=== PATIENT | male | born 1965 | race Caucasian/White ===

== ENCOUNTER 2019-06-22 09:06 | Day surgery (SDC) | payer OTHER, SELFPAY ==
[2019-06-22] VITALS (7 sets, daily range): BP systolic 107–119; BP diastolic 68–76; PULSE 50–66; RESP 12–16; TEMP 36.4–37.1; O2SAT 94–97; BMI 28.5
[2019-06-22] MEDS: SODIUM CHLORIDE 0.9% 1,000 ML 200 ML IV (09:30)
--- NOTE | 2019-06-22 09:45 | PM.HP.1 ---
History of Present Illness Date Patient Seen: 06/22/19 Time Patient Seen: 09:46 Chief complaint: Surviellence colonoscopy Narrative: Mr. Blanco is a 53-year-old male with a history of rectal cancer 2006 status post resection and chemo radiation treatment. He is here today for his screening colonoscopy. His last colonoscopy was 5 years ago and was reportedly negative. He has had diarrhea recently. Otherwise no systemic symptoms. Patient History Medical History Depression (Acute) History of migraine (Acute) Hyperlipidemia (Acute) Hypertension (Acute) Impaired vision (Acute) Rectal cancer (Acute ~2005) Weight loss, unintentional (Acute) Social History household members: spouse Family & Social History Social History: household members spouse Meds Home Medications Medication Instructions Recorded Confirmed Type clonazepam 1 mg PO BEDTIME PRN 06/22/19 06/22/19 History hydrochlorothiazide 25 mg PO DAILY 06/22/19 06/22/19 History losartan 50 mg PO DAILY 06/22/19 06/22/19 History ondansetron 4 mg PO Q6H PRN 06/22/19 06/22/19 History potassium chloride 10 meq PO DAILY 06/22/19 06/22/19 History sertraline 50 mg PO DAILY 06/22/19 06/22/19 History simvastatin 20 mg PO DAILY 06/22/19 06/22/19 History sumatriptan succinate 50 mg PO Q2-4H PRN 06/22/19 06/22/19 History topiramate 25 mg PO BEDTIME 06/22/19 06/22/19 History Allergies Allergy/AdvReac Type Severity Reaction Status Date / Time LISINOPRIL AdvReac Unknown dry cough Uncoded 02/26/18 12:00 Review of Systems Review of Systems General-no weight loss, fever or chills Head and Neck-no change in voice, no neck swelling Pulmonary-No cough, no shortness of breath at rest, no wheezing Cardiac-No syncope, caludiacation, palpitations or lower extremity edema Gastrointestinal-No nausea or vomiting, no abdominal distention, or jaundice Genitourinary-No hematuria or dysuria Hematology-No hypercoagulability, no abnormal bleeding or bruising Neurological-No seizures, new weakness or dizziness Endocrine-No diabetes, no thyroid or adrenal disorders Psychiatric-No anxiety, depression or substance abuse disorder Exam Vital Signs (past 8 hours): - 06/22/19 09:33 Temperature 97.5 F L Pulse Rate 63 Respiratory Rate 16 Blood Pressure 118/74 Pulse Oximetry 95 Oxygen Delivery Method Room Air Narrative Exam Narrative: General-Adult male no acute distress, well nourished HEENT-Moist mucous membranes, no scleral icteris Neck-Supple with full range of motion, no lymphadenopathy Chest- No labored respirations, clear to auscultation bilaterally Cardiac-Regular rate and rhythm Abdomen-Soft, nontender, non distended Extremities-No edema, warm well perfused Neurological-Alert and oriented x 3. No focal deficits Skin-Normal temperature and turgor, no rashes or ulcers Assessment & Plan (1) History of rectal cancer: Current visit: Yes Status: Acute Assessment & Plan narrative: 53-year-old male with a history of rectal cancer in 2005 status post resection here for screening colonoscopy. Last colonoscopy was 5 years ago
--- NOTE | 2019-06-22 09:50 | PM.PREOP ---
Pre-operative Note Interval Note History & Physical reviewed/Exam performed by Physician: Yes Changes to H&P: No ASA Class (for procedural sedation): II
--- NOTE | 2019-06-22 09:52 | PM.OP.ENDO ---
Operative Date/Time/Diagnoses Date of procedure: 06/22/19 Time of procedure: 09:52 Pre-op diagnosis: History of rectal cancer Post-op diagnosis: same Procedure & Clinicians Study performed: Colonoscopy Same procedure as scheduled: Yes Indications: History of rectal cancer 2006 sp resection. Surgeon: Yung Cunningham Procedure Notes SCOAP/Timeout: performed Procedure in detail: Time-out performed to ensure the correct patient procedure necessary equipment within the operating room. Digital rectal exam was performed which demonstrated a normal prostateand no rectal masses. The colonoscopy was inserted into the anus. A end-to-end anastomosis was observed consistent with his history of a low anterior resection for rectal cancer. The scope was advanced into the descending colon transverse colon ascenending colon and reached the cecum. The ileocecal valve was identified. The scope was then carefully withdrawn. There were no masses or polyps. The coloanal anastomosis appeared normal. Patient tolerated the procedure well. Scope withdrawal time: 11min Sedation minutes: 23 Findings: other findings (colon anal anastamosis sp LAR) Specimen(s): none sent Impression: SP Low anterior resection normal colonoscopy Recommendations: Colonscopy in 3 years Follow up: as needed Disposition: PACU
[2019-06-22] MEDS: fentaNYL 250 MCG/5 ML INJ IV (10:00)
[2019-06-22] MEDS: MIDAZOLAM 5 MG/5 ML VIAL IV (10:01)
--- NOTE | 2019-06-22 10:34 | SUR.PHASEI ---
Report to Carm[facility]
== END 2019-06-22 11:12 | disposition home or self-care (01) ==
PROVIDERS: Visit Provider Surgery
PROC: 0DJD8ZZ Inspection of Lower Intestinal Tract, Via Natural or Artificial Opening Endoscopic (ICD-10-PCS; CPT 45378; principal; 2019-06-22 10:45)
DX: Z85.048 Personal history of other malignant neoplasm of rectum, rectosigmoid junction, and anus (principal); I10 Essential (primary) hypertension
CPT/HCPCS: 45378; 99152; J2250; J3010

== ENCOUNTER → 2022-08-06 09:27 | Outpatient (CLI) | payer OTHER, SELFPAY ==
[2022-08-06 13:14] LABS: COVID19 -Nasal RAPID Negative (Negative)
== END ==
PROVIDERS: PCP Physician Assistant Medical; Visit Provider Surgery
DX: Z01.812 Encounter for preprocedural laboratory examination (principal); Z20.822 Contact with and (suspected) exposure to COVID-19
CPT/HCPCS: 87635; C9803

== ENCOUNTER 2022-08-07 10:15 | Day surgery (SDC) | payer OTHER, SELFPAY ==
--- NOTE | 2022-08-07 | PATH_ITS ---
[facility] Accession Number: [id number] . 01 Material submitted: . PART A: anastomosis - ANASTOMOSIS BIOPSY PART B: rectum - RECTAL POLYP . 01 Clinical history: . COLONOSCOPY ENCOUNTER FOR SCREENING FOR MALIGNANT NEOPLASM . 01 Diagnosis: A. Anastomosis, Biopsy: Hyperplastic colonic mucosa. Negative for active inflammation, granulomas, dysplasia, and malignancy. . B. Rectum, Polyp, Biopsy: Hyperplastic polyp. MRV 08/09/2022 0931 Local . 01 Electronically signed: . Ruma Doherty MD, Pathologist NPI- [id number] . 01 Gross description: . Part A: ANASTOMOSIS BIOPSY: Received in formalin is 1 fragment(s) of leal, soft tissue measuring 0.5 x 0.3 x 0.1 cm submitted entirely in 1 cassette(s) Part B: RECTAL POLYP: Received in formalin is 1 fragment(s) of leal, soft tissue measuring 0.3 x 0.3 x 0.2 cm submitted entirely in 1 cassette(s) /CPE 08/08/2022 0910 Local . 01 Pathologist provided ICD-10: K62.1 . 01 CPT . 986664, [id number] Performed at: 01 [facility] [address] [place] [address] [address], [place], [place] [id number] MD Hakeem Valenzuela MD Phone: [phone]
[2022-08-07] MEDS: LACTATED RINGERS 1,000 ML 200 ML IV (10:35)
[2022-08-07 10:36] VITALS: BP 163/79; PULSE 63; RESP 14; TEMP 36.2; O2SAT 98; BMI 34.0
--- NOTE | 2022-08-07 11:19 | PM.HP.1 ---
History of Present Illness History of Present Illness Date Patient Seen: 08/07/22 Time Patient Seen: 11:19 Chief complaint: Colonoscopy Narrative: 56-year-old man history rectal cancer status post LAR here for screening colonoscopy. A he has recently lost some weight and had some diarrhea which he is attributing to a change in his diet and starting metformin. No abdominal pain or blood per rectum Patient History Medical History Depression History of migraine Hyperlipidemia Hypertension Impaired vision Rectal cancer (~2005) Weight loss, unintentional Family & Social History Social History: household members spouse Tobacco & Substance use: Smoking Status Never smoker alcohol intake current alcohol intake frequency holiday/special occasion Substance Use Type does not use Meds Home Medications and Allergies Home Medications Medication Instructions Recorded Confirmed Type clonazepam 1 mg tablet 1 mg PO BEDTIME PRN Anxiety 06/22/19 08/07/22 History hydrochlorothiazide 25 mg tablet 25 mg PO DAILY 06/22/19 08/07/22 History losartan 50 mg tablet 50 mg PO DAILY 06/22/19 08/07/22 History ondansetron 4 mg disintegrating 4 mg PO Q6H PRN Nausea 06/22/19 08/07/22 History tablet potassium chloride 10 mEq 10 meq PO DAILY 06/22/19 08/07/22 History tablet,extended release sertraline 50 mg tablet 50 mg PO DAILY 06/22/19 08/07/22 History simvastatin 20 mg tablet 20 mg PO DAILY 06/22/19 08/07/22 History sumatriptan succinate 50 mg tablet 50 mg PO Q2-4H PRN Headache 06/22/19 08/07/22 History topiramate 25 mg tablet 25 mg PO BEDTIME 06/22/19 08/07/22 History Allergies Allergy/AdvReac Type Severity Reaction Status Date / Time LISINOPRIL AdvReac Unknown dry cough Uncoded 08/07/22 10:10 Exam Vital Signs (past 8 hours): - 08/07/22 10:36 Temperature 97.1 F L Pulse Rate 63 Respiratory Rate 14 Blood Pressure 163/79 H Pulse Oximetry 98 Oxygen Delivery Method Room Air Oxygen Delivery Method Room Air Narrative Exam Narrative: General adult male alert oriented no acute distress Chest nonlabored respiration Abdomen soft nontender nondistended Assessment & Plan Assessment & Plan narrative: The patient requires colorectal screening and colonoscopy is recommended. Technical details were discussed. Risks, benefits, alternatives explained. Risks including but not limited to myocardial infarction, aspiration, bleeding, pain, missed lesion, incomplete examination, need for further radiographic studies, colonic perforation, and need for major abdominal surgery were discussed. All questions were answered to their satisfaction, and they are in agreement with this plan. Time Spent With Patient Critical Care time: I spent a total of [] minutes of critical care time on this patient's care today; this time is exclusive of procedural time.
[2022-08-07] MEDS: MIDAZOLAM 5 MG/5 ML VIAL 4 MG IV (11:29)
[2022-08-07] MEDS: fentaNYL 100 MCG/2 ML INJ IV (11:29)
--- NOTE | 2022-08-07 11:48 | PM.OP.COLON ---
Operative Date/Time/Diagnoses Date of procedure: 08/07/22 Time of procedure: 11:48 Pre-op diagnosis: Personal history of rectal cancer Post-op diagnosis: same Procedure & Clinicians Study performed: Colonoscopy and polypectomy Same procedure as scheduled: Yes Indications: Personal history of rectal cancer status post LAR Surgeon: Yung Cunningham Procedure Notes Procedure in detail: Medications: Conscious sedation using 4mg IV midazolam and 100mcg IV of fentanyl The history and physical was performed/updated and the patient is ASA class is 2. The procedure was discussed in detail with the patient. Potential risks complications including infection, bleeding, missed diagnosis, perforation, need for surgery, and were explained. Their questions were answered and informed consent was obtained. Patient was brought to the procedure room and placed standard monitoring equipment. The patient's vital signs were monitored continuously throughout the entire procedure. Prior to starting time-out was performed. The patient was placed in the left lateral recumbent position. Procedural sedation was administered. Examination began with a thorough inspection of the perianal area there was no evidence of fissures, fistulae, external hemorrhoids or cutaneous malignancy. The colonoscopy scope was then placed into the anal canal and was advanced to the cecum, which was identified by the ileocecal valve, the appendiceal orifice and the confluence of the taenia. The scope was then slowly withdrawn examining colon thoroughly in all directions, irrigating it of any residual stool. FINDINGS 1. Rectum-5 mm polyp removed with biopsy forceps 2. Distal colonic end and anastomosis mild friability. Biopsy performed The patient tolerated the procedure well. They will be discharged once criteria are met. The prep was of good/excellent quality. The withdrawl time was 12 minutes. The sedation time was 18 minutes. Specimen(s): other (Rectal polyp, colonic anastomosis) Complications: none Impression: Colonic polyp Post-procedure Recommendations: Will call with biopsy results Disposition: same day surgery
[2022-08-07 11:54] VITALS: BP 138/83; PULSE 50; RESP 12; TEMP 36.2; O2SAT 97
[2022-08-07 11:59] VITALS: BP 132/82; PULSE 49; RESP 11; O2SAT 96
[2022-08-07 12:04] VITALS: BP 143/86; PULSE 47; RESP 16; O2SAT 98
[2022-08-07 12:09] VITALS: BP 151/93; PULSE 58; RESP 12; O2SAT 94
[2022-08-07 12:11] VITALS: BP 136/87; PULSE 46; RESP 13; TEMP 37.1; O2SAT 98
--- NOTE | 2022-08-07 12:16 | SUR.PHASEII ---
Report received. Patient denied pain, abdomen soft. Declined PO intake. Call light within reach. Criselda was updated with patient status.
== END 2022-08-07 12:36 | disposition home or self-care (01) ==
PROVIDERS: PCP Physician Assistant; Referring Provider Surgery; Visit Provider Surgery
PROC: 0DJD8ZZ Inspection of Lower Intestinal Tract, Via Natural or Artificial Opening Endoscopic (ICD-10-PCS; CPT 45378; principal; 2022-08-07 11:30)
DX: Z12.11 Encounter for screening for malignant neoplasm of colon (principal); Z85.048 Personal history of other malignant neoplasm of rectum, rectosigmoid junction, and anus; K62.1 Rectal polyp
CPT/HCPCS: 45380; 82962; 99152; J2250; J3010

== ENCOUNTER 2025-11-08 09:16 | Day surgery (SDC) | payer OTHER, SELFPAY ==
[2025-11-03 09:09] VITALS: BMI 29.4
[2025-11-08] MEDS: LACTATED RINGERS 1,000 ML 42 ML IV (10:28)
[2025-11-08 10:29] VITALS: BP 178/80; PULSE 54; RESP 16; TEMP 36.2; O2SAT 100
--- NOTE | 2025-11-08 10:36 | PM.HP.IH.1 ---
History of Present Illness History of Present Illness Date Patient Seen: 11/08/25 Time Patient Seen: 10:36 Chief complaint: Colonoscopy Narrative: Tremayne is a 60-year-old man who has a history of rectal cancer from 2005. His last colonoscopy was in 2021 and he had a hyperplastic polyp removed. [facility] Medical History (Updated 11/03/25 @ 09:07 by Lisa Crowe RN) GERD (gastroesophageal reflux disease) Diabetes Weight loss, unintentional Depression History of migraine Impaired vision Rectal cancer (~2005) Hyperlipidemia Hypertension Social History household members: spouse Smoking Status: Never smoker alcohol intake: current Meds Home Medications and Allergies Home Medications ?Medication ?Instructions ?Recorded ?Confirmed ?Type clonazepam 1 mg tablet 1 mg PO BEDTIME PRN Anxiety 06/22/19 11/08/25 History hydrochlorothiazide 25 mg tablet 25 mg PO DAILY 06/22/19 11/08/25 History losartan 50 mg tablet 50 mg PO DAILY 06/22/19 11/08/25 History ondansetron 4 mg disintegrating 4 mg PO Q6H PRN Nausea 06/22/19 11/08/25 History tablet potassium chloride 10 mEq 10 meq PO DAILY 06/22/19 11/08/25 History tablet,extended release sertraline 50 mg tablet 50 mg PO DAILY 06/22/19 11/08/25 History simvastatin 20 mg tablet 20 mg PO DAILY 06/22/19 08/07/22 History topiramate 25 mg tablet 25 mg PO BEDTIME 06/22/19 08/07/22 History Allergies Allergy/AdvReac Type Severity Reaction Status Date / Time lisinopril AdvReac Mild Cough Verified 08/07/22 11:46 Exam Vital Signs (past 8 hours): - 11/08/25 10:29 Temperature 97.2 F L Pulse Rate 54 L Respiratory Rate 16 Blood Pressure 178/80 H Pulse Oximetry 100 Oxygen Delivery Method Room Air Oxygen Delivery Method Room Air Const General: No acute distress Assessment & Plan Assessment and plan (1) History of rectal cancer: Status: Acute Plan Colonoscopy for history of rectal cancer Time-Based Coding :: [TOTAL MINUTES] spent with patient and on the chart (including review of chart, obtaining history, exam, reviewing outside data, placing orders, documenting exam and treatment plan, and counseling patient) on [DATE]. [employer] Environmental Program Manager Document charge(s): No
[2025-11-08 11:08] VITALS: BP 118/72; PULSE 118; RESP 14; TEMP 36.2; O2SAT 97
--- NOTE | 2025-11-08 11:08 | PM.OP.COLON ---
Operative Date/Time/Diagnoses Date of procedure: 11/08/25 Time of procedure: 11:08 Pre-op diagnosis: History of rectal cancer Post-op diagnosis: same Procedure & Clinicians Study performed: Colonoscopy Same procedure(s) as scheduled: Yes Surgeon: Andrea Morales Anesthesia Type: MAC +/- Procedure Notes Procedure in detail: Surgeon: Andrea Morales MD Anesthesia: Ruma Baker CRNA Procedure: The patient was brought to the endoscopy suite, placed in left lateral decubitus position. The patient was connected to monitoring devices. A time-out was performed. Sedation was administered. Once the patient was adequately sedated, a digital rectal exam was performed and was normal. The scope was then inserted and advanced to the cecum where the appendiceal orifice was identified and photographed. The scope was then slowly withdrawn over greater than 6 minutes. The mucosa was thoroughly inspected. No abnormalities were identified. Retroflexion could not be performed in the rectum has a was not enough space but the mucosa was well seen all the way to the dentate line. The patient was awakened and brought to recovery. Scope withdrawal time: 9 minutes Sedation time: 13 minutes Findings: Normal colon Estimated Blood Loss: 0 Complications: none Post-procedure Recommendations: Colonoscopy in 5 years Disposition: PACU
[2025-11-08 11:15] VITALS: BP 124/78; PULSE 68; RESP 20; O2SAT 94
[2025-11-08 11:17] VITALS: BP 140/78; PULSE 55; RESP 16; TEMP 36.3; O2SAT 96
--- NOTE | 2025-11-08 12:52 | SUR.PHASEII ---
Delay in discharge: pt did not feel ready to leave, wanted to sleep for a bit. Gently encouraged advancing activity; pt and ready to leave around 1225
== END 2025-11-08 12:30 | disposition home or self-care (01) ==
PROVIDERS: PCP Nurse Practitioner Acute Care; Referring Provider Surgery; Visit Provider Surgery
PROC: 0DJD8ZZ Inspection of Lower Intestinal Tract, Via Natural or Artificial Opening Endoscopic (ICD-10-PCS; CPT 45378; principal; 2025-11-08 10:30)
DX: Z12.11 Encounter for screening for malignant neoplasm of colon (principal); Z85.048 Personal history of other malignant neoplasm of rectum, rectosigmoid junction, and anus; Z86.0100 Personal history of colon polyps, unspecified
CPT/HCPCS: 45378; J2704; J7120